=== PATIENT | female | born 1985 | race Two or more races ===

== ENCOUNTER → 2020-05-03 | Outpatient (CLI) | payer SELFPAY ==
[~2020-05-03] MED LIST: PRENATAL VITAM1 EAC3 PO
== END ==
LOC: EXRD 10:07
DX: R05 Cough (principal); M54.5 Low back pain; R91.1 Solitary pulmonary nodule
CPT/HCPCS: 71046; 72110

== ENCOUNTER 2020-12-22 03:49 | Emergency (ER) | payer SELFPAY ==
[2020-12-22] MEDS ORDERED: CYCLOBENZAPRINE10 MG PO (05:31)
[2020-12-22] MEDS ORDERED: IBUPROFEN800 MG PO (05:31)
== END 2020-12-22 06:41 | disposition home or self-care (01) ==
LOC: ER1 03:49
DX: M54.16 Radiculopathy, lumbar region (principal); K59.00 Constipation, unspecified
CPT/HCPCS: 72100; 81001; 96372; 99283; J1885; J2360

== ENCOUNTER → 2020-12-28 | Outpatient (CLI) | payer SELFPAY ==
[~2020-12-28] MED LIST changes: +CYCLOBENZAPRINE10 MG PO; +IBUPROFEN800 MG PO
== END ==
LOC: KOH-I 08:00
DX: M51.27 Other intervertebral disc displacement, lumbosacral region (principal)
CPT/HCPCS: 72148

== ENCOUNTER 2021-02-02 00:05 | Emergency (ER) | payer SELFPAY ==
[2021-02-02] MEDS ORDERED: NORFLEX 100 MG100 MG PO (00:23)
[2021-02-02] MEDS ORDERED: LODINE CAP 300300 MG PO (00:23)
== END 2021-02-02 02:08 | disposition home or self-care (01) ==
LOC: ER1 00:05
DX: M54.31 Sciatica, right side (principal)
CPT/HCPCS: 96374; 96375; 99283; J1100; J1885; J2360

== ENCOUNTER 2021-02-11 12:14 | Emergency (ER) | payer MEDICAID ==
[~2021-02-11 12:14] MED LIST changes: +LODINE CAP 300300 MG PO; +NORFLEX 100 MG100 MG PO
[2021-02-11] MEDS ORDERED: PREDNISONE50 MG PO (14:08)
[2021-02-11] MEDS ORDERED: NORFLEX 100 MG100 MG PO (14:08)
[2021-02-11] MEDS ORDERED: Voltaren Gel 1 % TOP (14:08)
== END 2021-02-11 14:50 | disposition home or self-care (01) ==
LOC: ER1 12:14
DX: G89.29 Other chronic pain (principal); M54.41 Lumbago with sciatica, right side
CPT/HCPCS: 96372; 99283; J1100; J2270

== ENCOUNTER → 2021-02-27 | Outpatient (CLI) | payer OTHER ==
[~2021-02-27] MED LIST changes: +IRON; +NEURONTIN300 MG PO; +PREDNISONE50 MG PO; +TRAMADOL HCL50 MG PO; +VITAMIN D; +Voltaren Gel 1 % TOP
[2021-02-27 11:02] LABS: HEMOGLOBIN 10.5 gm/dl (12.3-15.3); RED BLOOD COUNT 4.05 M/UL (4.00-5.10); WHITE BLOOD COUNT 4.8 K/UL (4.5-11.0)
[2021-02-27 11:20] LABS: BUN/CREATININE RATIO 15 (0-10)
== END ==
LOC: OPSV2 10:04 → EDSTATUS 10:30 → OPSV2 10:30
PROVIDERS: Orthopaedic Surgery
DX: Z01.818 Encounter for other preprocedural examination (principal); M51.27 Other intervertebral disc displacement, lumbosacral region; M54.16 Radiculopathy, lumbar region; R91.8 Other nonspecific abnormal finding of lung field
CPT/HCPCS: 71046; 80048; 81001; 85025; 87081

== ENCOUNTER → 2021-03-12 | Day surgery (SDC) | payer OTHER | END | disposition home or self-care (01) | LOC: OR 05:27 | DX: M51.17 Intervertebral disc disorders with radiculopathy, lumbosacral region (principal); M48.07 Spinal stenosis, lumbosacral region; D50.9 Iron deficiency anemia, unspecified; E55.9 Vitamin D deficiency, unspecified; Z98.51 Tubal ligation status; Z20.822 Contact with and (suspected) exposure to COVID-19 | CPT/HCPCS: 72110; 76000; C1781; J0690; J1040; J1100; J1885; J2001; J2250; J2405; J2704; J2710; J3010; J7040; J7120 ==

== ENCOUNTER → 2021-05-17 | Outpatient (CLI) | payer OTHER | LOC: EXRD 11:31 | DX: R93.89 Abnormal findings on diagnostic imaging of other specified body structures (principal); R91.8 Other nonspecific abnormal finding of lung field | CPT/HCPCS: 71046 ==

== ENCOUNTER → 2021-05-24 | Outpatient (CLI) | payer MEDICAID | LOC: KOH-I 14:30 | DX: R91.1 Solitary pulmonary nodule (principal); R91.8 Other nonspecific abnormal finding of lung field | CPT/HCPCS: 71250 ==

== ENCOUNTER → 2021-11-05 | Outpatient (CLI) | payer MEDICAID | LOC: KOH-I 10-25 13:00 | DX: R91.1 Solitary pulmonary nodule (principal) | CPT/HCPCS: 71250 ==